=== PATIENT | female | born 1975 | race Caucasian/White ===

== ENCOUNTER 2016-10-09 13:03 | Emergency (ER) | payer MEDICAID, OTHER ==
[2016-10-09] MEDS ORDERED: BENADRYL IV ONE (14:47)
[2016-10-09] MEDS ORDERED: REGLAN IV ONE (14:47)
[2016-10-09] MEDS ORDERED: NACL 0.9% 1000 ML 1,000 ML IV ONE (14:47)
[2016-10-09 17:03] VITALS: BP 138/88
--- NOTE | 2016-10-09 18:22 | Emergency Department Report ---
Entered by LITTLE CRAIG, acting as scribe for ALEX VERA NP. ED Headache HPI - General Chief Complaint: Headache Stated Complaint: HEADACHE Time Seen by Provider: 10/09/16 14:42 Source: patient Exam Limitations: no limitations - History of Present Illness Initial Comments: This is a 41 y/o female, nontoxic, well nourished in appearance, no acute signs of distress presents with chronic headache that reoccurred last night. Patient denies any head trauma. They stated she has been diagnosed with tension headaches and has been treated with [id number] ibuprofen and Tylenol as needed. Today patient stated headache has not been relieved by over-the- counter medication. Denies vision changes, blurry vision, chest pain, shortness of breath, stiff neck, numbness or tingling, fever, chills, nausea, and vomiting. Patient describes headache as a diffuse and throbbing in quality with level of 8 out of 10. Patient denies thunderclap headache. Mild relief with ibuprofen and worse with exposure to light. Patient stated symptoms subside with darkness. Allergic to penicillins. PMHx of tension headaches. LMP : 10/09/16. Patient's , Edvin, is present and will drive her home. Timing/Duration: constant Quality: throbbing Head Injury Location: other (diffuse) Recent Head Trauma: chronic headaches Modifying Factors: improves with: exposure to light, medication Associated Symptoms: denies symptoms. denies: confusion, fatigue, facial pain, fever/chills, flushing, loss of consciousness, nausea/vomiting, nasal drainage, numbness in legs/feet, rash, seizures, sinus infection, stiff neck, vision changes, weakness Allergies/Adverse Reactions: Allergies Penicillins Adverse Reaction (Verified 10/09/16 13:12) Itching Home Medications: Ambulatory Orders Butalb/Acetamin/Caff 50-325-40 [Fioricet] 1 tab PO Q6HR PRN #30 tab 10/09/16 ED Review of Systems Comment: All other systems reviewed and negative Constitutional: denies: chills, fever Eyes: denies: vision change ENT: denies: ear pain, throat pain Respiratory: denies: cough, shortness of breath, wheezing Cardiovascular: denies: chest pain, palpitations Endocrine: no symptoms reported Gastrointestinal: denies: nausea, vomiting Genitourinary: denies: urgency, dysuria, discharge Musculoskeletal: denies: back pain, joint swelling, arthralgia Skin: denies: rash, lesions Neurological: headache Psychiatric: denies: anxiety, depression Hematological/Lymphatic: denies: easy bleeding, easy bruising ED Past Medical Hx - Past Medical History Previous Medical History?: Yes Hx Hypertension: Yes - Surgical History Past Surgical History?: Yes Additional Surgical History: myomectomy, bunion - Social History Smoking Status: Never Smoker Substance Use Type: Alcohol - Medications Home Medications: Home Medications Medication Instructions Recorded Confirmed Last Taken Type Butalb/Acetamin/Caff 50-325-40 1 tab PO Q6HR PRN #30 tab 10/09/16 Unknown Rx [Fioricet] ED Physical Exam - General Limitations: No Limitations General appearance: alert, in no apparent distress - Head Head exam: Present: atraumatic, normocephalic, normal inspection - Eye Eye exam: Present: normal appearance, PERRL, EOMI. Absent: scleral icterus, conjunctival injection, nystagmus, periorbital swelling, periorbital tenderness Pupils: Present: normal accommodation - ENT ENT exam: Present: normal exam, normal orophraynx, mucous membranes moist, TM's normal bilaterally, normal external ear exam - Neck Neck exam: Present: normal inspection, full ROM. Absent: tenderness, meningismus, lymphadenopathy, thyromegaly - Respiratory Respiratory exam: Present: normal lung sounds bilaterally. Absent: respiratory distress, wheezes, rales, rhonchi, stridor, chest wall tenderness, accessory muscle use, decreased breath sounds, prolonged expiratory - Cardiovascular Cardiovascular Exam: Present: regular rate, normal rhythm, normal heart sounds. Absent: bradycardia, tachycardia, irregular rhythm, systolic murmur, diastolic murmur, rubs, gallop - GI/Abdominal GI/Abdominal exam: Present: soft, normal bowel sounds. Absent: distended, tenderness, guarding, rebound, rigid, diminished bowel sounds - Rectal Rectal exam: Present: deferred - Extremities Exam Extremities exam: Present: normal inspection, full ROM, normal capillary refill. Absent: tenderness, pedal edema, joint swelling, calf tenderness - Back Exam Back exam: Present: normal inspection, full ROM. Absent: tenderness, CVA tenderness (R), CVA tenderness (L), muscle spasm, paraspinal tenderness, vertebral tenderness, rash noted - Neurological Exam Neurological exam: Present: alert, oriented X3, CN II-XII intact, normal gait, reflexes normal - Expanded Neurological Exam Expanded Patient oriented to: Present: person, place, time Speech: Present: fluid speech Cranial nerves: EOM's Intact: Normal, Gag Reflex: Normal, Tongue Deviation: Normal, Nystagmus: Normal, Facial Sensation: Normal, Facial Palsy with Forehead Movement: Normal, Facial Palsy without Forehead Movement: Normal Cerebellar function: Finger to Nose: Normal, Heel to [place]: Normal, Romberg: Normal Upper motor neuron: Abelino Neglect: Normal, Pronator Drift: Normal, Babinski Sign : Normal, Sensory Extinction: Normal Sensory exam: Upper Extremity Light Touch: Normal, Upper Extremity Pin Prick: Normal, Upper Extremity Temperature: Normal, UE 2 Point Discrimination: Normal, Lower Extremity Light Touch: Normal, Lower Extremity Pin Prick: Normal, Lower Extremity Temperature: Normal, LE 2 Point Discrimination: Normal Motor strength exam: RUE: 5, LUE: 5, RLE: 5, LLE: 5 DTR: bicep (R): 2+, bicep (L): 2+, tricep (R): 2+, tricep (L): 2+, knee (R): 2+ , knee (L): 2+, ankle (R): 2+, ankle (L): 2+ Best Eye Response ([place]): (4) open spontaneously Best Motor Response ([place]): (6) obeys commands Best Verbal Response ([place]): (5) oriented [place] Total: 15 - Psychiatric Psychiatric exam: Present: normal affect, normal mood - Skin Skin exam: Present: warm, dry, intact, normal color. Absent: rash ED Course Vital Signs 10/09/16 10/09/16 13:09 16:59 Temperature 98.1 F 98.2 F Pulse Rate 95 H 88 Respiratory 16 18 Rate Blood Pressure 144/94 Blood Pressure 138/88 [Left] O2 Sat by Pulse 100 100 Oximetry - Reevaluation(s) Reevaluation #1: 10/09/16 15:39 Patient is speaking in full sentences with no signs of distress noted. Reevaluation #2: 10/09/16 16:12 Patient is requested comfortably with no signs of distress. Patient stated headache has subsided after medical treatment in the ED ED Medical Decision Making - Medical Decision Making ED course; this is a 41-year-old female that presents with headache 1- patient was examined by myself. Patient is stable. Patient received Benadryl, Reglan, and 1000 normal saline IV. Patient stated symptoms have subsided post medical treatment in the ED. 2- patient will be treated with Fioricet at discharge and was instructed to follow-up with a primary care doctor/neurologist in 3-5 days or if symptoms worsen or continue return to emergency room as soon as possible. 3- At time time of discharge, the patient does not seem toxic or ill in appearance. No acute signs of distress noted. Patient agrees to discharge treatment plan of care. No further questions noted by the patient. ED Disposition Clinical Impression: Headache Qualifiers: Headache type: unspecified Headache chronicity pattern: chronic headache Intractability: not intractable Qualified Code(s): R51 - Headache Disposition: DC- TO HOME OR SELFCARE Is pt being admited?: No Does the pt Need Aspirin: No Condition: Stable Instructions: Butalbital/Acetaminophen/Caffeine (By mouth), Acute Headache (ED) Additional Instructions: Follow-up with a primary care doctor/neurologist in 3-5 days or if symptoms worsen and continue return to emergency room as soon as possible. Prescriptions: Butalb/Acetamin/Caff 50-325-40 [Fioricet] 1 tab PO Q6HR PRN #30 tab PRN Reason: Headache Referrals: BROOKS TOBAR MD [Primary Care Provider] - 3-5 Days JET ALLEN JR, MD [Referring] - 3-5 Days CHAVA ACEVEDO MD [Staff Physician] - 3-5 Days [facility] [Outside] - 3-[address] [facility] [place] [Outside] - 3-5 Days Forms: Work/School Release Form(ED) This documentation as recorded by the RAFA pedersen ELIZABETH,accurately reflects the service I personally performed and the decisions made by ,ALEX VERA, SECURITY ASSOCIATE.
== END 2016-10-09 18:29 | disposition home or self-care (01) ==
LOC: ED 13:03
DX: G89.29 Other chronic pain (principal); R51 Headache; I10 Essential (primary) hypertension; Z88.0 Allergy status to penicillin
CPT/HCPCS: 96361; 96374; 96375; 99282; J1200; J2765; J7030